=== PATIENT | female | born 1970 | race Caucasian/White ===

== ENCOUNTER 2018-07-28 12:21 | Emergency (ER) | payer OTHER ==
--- OUTSIDE RECORDS SUMMARY | 2018-07-28 12:23 | XMS REPORT ---
:1970 Author Organization [employer] Care Team Providers Name Role Phone Anthony Christina Provider Role Unavailable Allergies, Adverse Reactions, Alerts Substance Reaction Event Type N.K.D.A. Info Not Available Non Drug Allergy Problems Problem Type Condition Code Onset Dates Condition Status Assessment BMI 40.0-44.9, adult Z68.41 Active Problem Encounter for screening mammogram Z12.31 Active for breast cancer Problem Encounter for gynecological Z01.419 Active examination without abnormal finding Problem BMI 40.0-44.9, adult Z68.41 Active Assessment Encounter for gynecological Z01.419 Active examination without abnormal finding Assessment Encounter for screening mammogram Z12.31 Active for breast cancer Problem Gastroesophageal reflux disease, K21.9 Active esophagitis presence not specified Medications Medication Code Code Instructions Start End Status Dosage System Date Date Clonazepam [facility] 52931905585 1 MG Orally Once Active 1 tablet a day Seroquel [facility] 00026674293 200 MG Orally Active 1 tablet Once a day Lisinopril/HCTZ [facility] 25563730720 20/12.5 PO Q Active one daily tablet Atenolol [facility] 03272149115 50 MG Orally Active 1 tablet Once a day Pantoprazole [facility] 40103028472 40 MG Orally May 07, Active 1 tablet Sodium Once a day 2017 Results Name Result Date Reference Range Unit Abnormality Flag URINALYSIS AUTO W/O SCOPE (70435) ----NIT neg [id number] ----URO 1.0 [id number] ----PROTEIN neg [id number] ----pH 5.5 [id number] ----BLO TRACE [id number] ----GLUCOSE neg [id number] ----YVETTE neg [id number] ----BILIRUBIN 1+ [id number] ----KETONES 1+ [id number] ----SPECIFIC GRAVITY 1.025 [id number] Summary Purpose e[employer]Works Submission
--- OUTSIDE RECORDS SUMMARY | 2018-07-28 12:23 | XMS REPORT ---
:1970 Author Organization [employer] Care Team Providers Name Role Phone Anthony Christina Provider Role Unavailable Allergies No Known Allergies Problems Problem Type Condition Code Onset Dates Condition Status Problem Encounter for screening mammogram Z12.31 Active for breast cancer Problem Encounter for gynecological Z01.419 Active examination without abnormal finding Problem BMI 40.0-44.9, adult Z68.41 Active Problem Gastroesophageal reflux disease, K21.9 Active esophagitis presence not specified Medications Medication Code System Code Instructions Start Date End Date Status Dosage Diflucan [facility] 55901132025 150 MG Orally Jul 03, Jul 04, Active 1 tablet Once a day 2017 2017 Results No Known Results Summary Purpose [employer] Submission
--- NOTE | 2018-07-28 14:00 | RAD REPORT ---
EXAM DESCRIPTION: RAD -Hand Left 3 View - 07/28/2018 1:48 pm CLINICAL HISTORY: Left hand pain status post injury FINDINGS: No fracture or dislocation is seen.
--- NOTE | 2018-07-28 15:02 | ER ---
Nurse's Notes [facility] Name: Claire Saldaña Age: 48 yrs Sex: Female : 1970 Arrival Date: 07/28/2018 Time: 12:31 Bed 14 Private MD: Diagnosis: Unspecified sprain of left little finger Presentation: 07/28 12:38 Presenting complaint: Patient states: i fell working out yesterday and hurt L hand and hj L shoulder; denies hitting head and LOC;. Transition of care: patient was not received from another setting of care. Onset of symptoms was July 28, 2018. Risk Assessment: Do you want to hurt yourself or someone else? Patient reports no desire to harm self or others. Initial Sepsis Screen: Does the patient meet any 2 criteria? No. Patient's initial sepsis screen is negative. Does the patient have a suspected source of infection? No. Patient's initial sepsis screen is negative. Care prior to arrival: None. 12:38 Method Of Arrival: Ambulatory 12:38 Acuity: BOB 4 hj Triage Assessment: 12:40 General: Appears in no apparent distress. uncomfortable, Behavior is calm, cooperative, hj appropriate for age. Pain: Complains of pain in left hand. Musculoskeletal: Reports pain in left hand. 12:42 Injury Description: smashed. 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 - Social history:: Smoking status: Patient/guardian denies using tobacco, Patient/guardian denies using alcohol. - Ebola Screening: : Patient negative for fever greater than or equal to 101.5 degrees Fahrenheit, and additional compatible Ebola Virus Disease symptoms Patient denies exposure to infectious person Patient denies travel to an Ebola-affected area in the 21 days before illness onset. Screenin:40 Abuse screen: Denies threats or abuse. Denies injuries from another. Nutritional hj screening: No deficits noted. Tuberculosis screening: No symptoms or risk factors identified. Fall Risk None identified. Assessment: 13:00 General: Appears in no apparent distress. comfortable, well groomed, well developed, sg well nourished, Behavior is calm, cooperative, appropriate for age. Respiratory: Airway is patent Respiratory effort is even, unlabored, Respiratory pattern is regular, symmetrical. Derm: Bruising that is dark purple, green, on left little finger. Derm: Skin is pink, warm \T\ dry. Musculoskeletal: Circulation, motion, and sensation intact. Range of motion: intact in all extremities, Swelling present in left little finger. Vital Signs: 12:41 BP 112 / 75; Pulse 80; Resp 18; Temp 97.2(TE); Pulse Ox 98% on R/A; Weight 102.06 kg; hj Height 5 ft. 5 in. (165.10 cm); Pain 8/10; 15:00 BP 115 / 70; Pulse 72; Resp 17 S; Pulse Ox 98% on R/A; Pain 6/10; sg 12:41 Body Mass Index 37.44 (102.06 kg, 165.10 cm) ED Course: 12:31 Patient arrived in ED. sb2 12:39 Triage completed. hj 12:41 Arm band placed on right wrist. hj 12:42 Patient has correct armband on for positive identification. Bed in low position. Call light in reach. Side rails up X 1. 12:46 Luis Bateman NP is PHCP. pm1 12:47 Malik Trammell MD is Attending Physician. pm1 12:52 Jagdeep Whalen, JONE is Primary Nurse. sg 13:45 X-ray completed. Portable x-ray completed in exam room. Patient tolerated procedure ml well. 13:46 Hand Left 3 View XRAY In Process Unspecified. EDMS 15:00 Piter Snyder MD is Referral Physician. pm1 15:30 No provider procedures requiring assistance completed. IV discontinued, intact, sg bleeding controlled, No redness/swelling at site. Pressure dressing applied. 15:32 Aluminum finger splint applied to left little finger. sg Administered Medications: No medications were administered Outcome: 15:02 Discharge ordered by . pm1 15:30 Discharged to home ambulatory, with family. sg 15:30 Condition: stable 15:30 Discharge instructions given to patient, Instructed on discharge instructions, follow up and referral plans. medication usage, safety practices, Demonstrated understanding of instructions, follow-up care, medications, Prescriptions given X 1. 15:33 Patient left the ED. sg Signatures: Dispatcher [employer] EDMS Jagdeep Whalen, RN RN Claire Johnston Henry, RN RN Luis Duarte, COMMISSIONER [employer]SERV[employer]OURCES COMMISSIONER CONSERVATION OF [employer]OURCES pm1 Sarah Harrison sb2 Corrections: (The following items were deleted from the chart) 12:42 12:41 Pulse 80bpm; Resp 18bpm; Pulse Ox 98% RA; Temp 97.2F Temporal; 102.06 kg; Height hj 5 ft. 5 in.; BMI: 37.4; Pain 8/10; hj
--- NOTE | 2018-07-28 15:03 | EDPHYS ---
Physician Documentation [facility] Name: Claire Saldaña Age: 48 yrs Sex: Female : 1970 Arrival Date: 07/28/2018 Time: 12:31 Bed 14 Private MD: ED Physician Malik Trammell HPI: 07/28 15:00 This 48 yrs old Female presents to ER via Ambulatory with complaints of pm1 Finger Injury. 18:36 The patient or guardian reports decreased range of motion, pain, swelling. The pm1 complaints affect the left little finger. Context: The problem was sustained at a Gym, resulted from a fall. Onset: The symptoms/episode began/occurred yesterday. Modifying factors: The symptoms are alleviated by nothing, the symptoms are aggravated by movement. Associated signs and symptoms: Pertinent negatives: cyanosis distally, decreased sensation distally, numbness distally, tingling distally. Severity of symptoms: in the emergency department the symptoms are actually worse. Patient was able to bend her 5 th left finger FROM after injury yesterday but with the swelling today she is has some limits on the range of motion of her 5 th little finger. Patient fell of the tread mill and injured her finger. Patient without headache, head injury or neck pain. 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 - Social history:: Smoking status: Patient/guardian denies using tobacco, Patient/guardian denies using alcohol. - Ebola Screening: : Patient negative for fever greater than or equal to 101.5 degrees Fahrenheit, and additional compatible Ebola Virus Disease symptoms Patient denies exposure to infectious person Patient denies travel to an Ebola-affected area in the 21 days before illness onset. ROS: 18:36 Constitutional: Negative for fever, chills, and weight loss, Eyes: Negative for injury, pm1 pain, redness, and discharge, ENT: Negative for injury, pain, and discharge, Neck: Negative for injury, pain, and swelling, Cardiovascular: Negative for chest pain, palpitations, and edema, Respiratory: Negative for shortness of breath, cough, wheezing, and pleuritic chest pain, Abdomen/GI: Negative for abdominal pain, nausea, vomiting, diarrhea, and constipation, Back: Negative for injury and pain. 18:36 Skin: Negative for injury, rash, and discoloration, Neuro: Negative for headache, weakness, numbness, tingling, and seizure. 18:36 MS/extremity: Positive for pain, of the left little finger. Exam: 18:36 Constitutional: This is a well developed, well nourished patient who is awake, alert, pm1 and in no acute distress. Head/Face: Normocephalic, atraumatic. Eyes: Pupils equal round and reactive to light, extra-ocular motions intact. Lids and lashes normal. Conjunctiva and sclera are non-icteric and not injected. Cornea within normal limits. Periorbital areas with no swelling, redness, or edema. ENT: Nares patent. No nasal discharge, no septal abnormalities noted. Tympanic membranes are normal and external auditory canals are clear. Oropharynx with no redness, swelling, or masses, exudates, or evidence of obstruction, uvula midline. Mucous membranes moist. Neck: Trachea midline, no thyromegaly or masses palpated, and no cervical lymphadenopathy. Supple, full range of motion without nuchal rigidity, or vertebral point tenderness. No Meningismus. Chest/axilla: Normal chest wall appearance and motion. Nontender with no deformity. No lesions are appreciated. Cardiovascular: Regular rate and rhythm with a normal S1 and S2. No gallops, murmurs, or rubs. Normal PMI, no JVD. No pulse deficits. Respiratory: Lungs have equal breath sounds bilaterally, clear to auscultation and percussion. No rales, rhonchi or wheezes noted. No increased work of breathing, no retractions or nasal flaring. Abdomen/GI: Soft, non-tender, with normal bowel sounds. No distension or tympany. No guarding or rebound. No evidence of tenderness throughout. Back: No spinal tenderness. No costovertebral tenderness. Full range of motion. Skin: Warm, dry with normal turgor. Normal color with no rashes, no lesions, and no evidence of cellulitis. 18:36 Musculoskeletal/extremity: Extremities: grossly normal except: noted in the left little finger: tenderness, ROM: limited active range of motion due to pain, in the left little finger, Circulation is intact in all extremities. Pulses: noted to be 2+ in the left radial artery. Vital Signs: 12:41 BP 112 / 75; Pulse 80; Resp 18; Temp 97.2(TE); Pulse Ox 98% on R/A; Weight 102.06 kg; hj Height 5 ft. 5 in. (165.10 cm); Pain 8/10; 15:00 BP 115 / 70; Pulse 72; Resp 17 S; Pulse Ox 98% on R/A; Pain 6/10; sg 12:41 Body Mass Index 37.44 (102.06 kg, 165.10 cm) hj MDM: 12:50 Patient medically screened. pm1 14:59 Data reviewed: vital signs. Data interpreted: Pulse oximetry: on room air is 98 %. pm1 Interpretation: normal. Counseling: I had a detailed discussion with the patient and/or guardian regarding: the historical points, exam findings, and any diagnostic results supporting the discharge/admit diagnosis, radiology results, the need for outpatient follow up, to return to the emergency department if symptoms worsen or persist or if there are any questions or concerns that arise at home. 07/28 13:41 Order name: Hand Left 3 View XRAY; Complete Time: 14:47 pm1 07/28 14:59 Order name: Splint - Finger; Complete Time: 15:32 pm1 Administered Medications: No medications were administered Disposition: 07/29 10:12 Co-signature as Attending Physician, Malik Trammell MD. Disposition: 07/28/18 15:02 Discharged to Home. Impression: Unspecified sprain of left little finger. - Condition is Stable. - Discharge Instructions: Cast or Splint Care, Adult, Finger Sprain, Adult. - Prescriptions for Tramadol 50 mg Oral Tablet - take 1 tablet by ORAL route every 8 hours as needed; 12 tablet. - Work release form, Medication Reconciliation Form, Thank You Letter, Antibiotic Education, Prescription Opioid Use form. - Follow up: Emergency Department; When: As needed; Reason: Worsening of condition. Follow up: Piter Snyder MD; When: 2 - 3 days; Reason: Recheck today's complaints, Continuance of care, Re-evaluation by your physician. - Problem is new. - Symptoms have improved. Signatures: Dispatcher [employer] EDMS Jagdeep Whalen RN RN Gian Ni RN RN hj Luis Bateman, COUNTY HOME DEMONSTRATOR COUNTY HOME DEMONSTRATOR pm1 Malik Trammell MD MD gs Corrections: (The following items were deleted from the chart) 07/28 15:33 15:02 07/28/2018 15:02 Discharged to Home. Impression: Unspecified sprain of left sg little finger. Condition is Stable. Forms are Medication Reconciliation Form, Thank You Letter, Antibiotic Education, Prescription Opioid Use. Follow up: Emergency Department; When: As needed; Reason: Worsening of condition. Follow up: Piter Snyder; When: 2 - 3 days; Reason: Recheck today's complaints, Continuance of care, Re-evaluation by your physician. Problem is new. Symptoms have improved. pm1
== END 2018-07-28 15:33 | disposition home or self-care (01) ==
LOC: ER 12:21
PROC: 2W3KX1Z Immobilization of Left Finger using Splint (ICD-10-PCS; principal; 2018-07-28)
DX: S63.617A Unspecified sprain of left little finger, initial encounter (principal); W01.0XXA Fall on same level from slipping, tripping and stumbling without subsequent striking against object, initial encounter; Y93.A1 Activity, exercise machines primarily for cardiorespiratory conditioning; Y92.39 Other specified sports and athletic area as the place of occurrence of the external cause; I10 Essential (primary) hypertension
CPT/HCPCS: 99283

== ENCOUNTER 2023-07-06 21:57 | Emergency (ER) | payer BC, OTHER ==
--- OUTSIDE RECORDS SUMMARY | 2023-07-06 22:00 | XMS REPORT | Continuity of Care Document ---
:1970 Author Organization [facility] t Address [address] [place] [address] Care Team Providers Name Role Phone Unavailable Unavailable Unavailable Problems Condition Condition Condition Status Onset Resolution Last Treating Co mments Source Name Details Category Date Date Treatment Clinician Date BMI BMI Problem Active Common 40.0-44.9, 40.0-44.9, Sp radha adult adult [facility] Encounter Encounter Problem Active Com mon for for Spirit screening screening - [facility] I mammogram mammogram St for breast for breast [facility] Encounter Encounter Problem Active Com mon [facility] gynecologi gynecologi - [facility] marsha marsha St examinatio examinatio Na kes n without n without Medi marsha abnormal abnormal Center finding finding Gastroesop Gastroesop Problem Active C ommon hageal hageal Spirit reflux reflux - [facility] disease, disease, St esophagiti esophagiti Na kes s presence s presence Me dical not not Center specified specified Abnormal Abnormal Diagnosis Active Com mon mammogram mammogram Spir it - [facility] Allergies, Adverse Reactions, Alerts This patient has no known allergies or adverse reactions. Medications Ordered Filled Start Stop Current Ordering Indication Dosage Frequency Signature Comments Components Source Medication Medication Date Date Medication? Clinician (SIG) Name Name Pantoprazol Pantoprazol 2018- Yes Anthony 1 tablet Common e Sodium e Sodium 6-13 [facility] 00:00: - [facility] 00 [facility] Atenolol Atenolol Yes Anthony 1 tablet Common [facility] Clonazepam Clonazepam Yes Anthony 1 tablet Common [facility] Lisinopril/ Lisinopril/ Yes Anthony one tablet Common HCTZ HCTZ [facility] Seroquel Seroquel Yes Anthony 1 tablet [facility] Procedures This patient has no known procedures. Encounters Start End Encounter Admission Attending Care Care Encounter Source Date/Time Date/Time Type Type Clinicians Facility Department ID 2019-08-11 2019-08-11 [id number] Common 09:38[facility] 2019-03-03 2019-03-03 [facility] [id number] Common 09:59:00 09:59:00 t [facility] 2019-02-26 2019-02-26 [facility] [id number] Common 11:21:[facility] 2019-02-26 2019-02-26 [facility] [id number] Common 10:15:00 10:15:00 t [facility] 2018-07-03 2018-07-03 [facility] [id number] Common 10:09:00 10:09:00 t [facility] 2018-06-02 2018-06-02 [facility] [id number] Common 13:30:00 13:30:00 t [facility] Results This patient has no known results.
[2023-07-06] MEDS ORDERED: NA CHLORIDE 0.9% 1,000 ML ONE (22:30)
[2023-07-06 22:44] LABS: Absolute Lymphocytes (CBC) 1.5 K/uL (0.7-4.9); Hematocrit 37.8 % (36.0-45.0); Lymphocytes % 24.1 % (15.3-44.8); MCV 84.5 fL (80-100); Platelets 196 thou/uL (152-406); RBC Red Blood Cell Count 4.48 M/uL (3.86-4.86)
[2023-07-06 22:57] LABS: Bilirubin Total 0.7 mg/dL (0.2-1.0); Magnesium 1.9 mg/dL (1.6-2.4); Potassium 3.7 mEq/L (3.5-5.1); Troponin High Sensitivity 4.9 pg/mL (<58.9)
[2023-07-06 23:56] LABS: Barbiturates NEGATIVE (NEGATIVE); Benzodiazepines NEGATIVE (NEGATIVE); Cocaine NEGATIVE (NEGATIVE); METHAMPHETAM NEGATIVE (NEGATIVE); Methadone NEGATIVE (NEGATIVE); Opiates NEGATIVE (NEGATIVE); Phencyclidine NEGATIVE (NEGATIVE); THC Cannibis NEGATIVE (NEGATIVE)
[2023-07-06 23:57] LABS: Specific Gravity 1.015 (1.005-1.030); Urine Bacteria <20 /HPF (<20); Urine Bilirubin NEGATIVE (Negative); Urine Blood 3+ (Negative); Urine Clarity Turbid (Clear); Urine Color Light-Yellow (Yellow); Urine Crystals Unidentified Few /HPF (None Seen); Urine Glucose NEGATIVE (Negative); Urine Mucus Slight /HPF (None Seen); Urine Protein TRACE (Negative); Urine RBC <5 /HPF (None Seen); Urine Urobilinogen Normal (Normal); Urine pH 5.5 (5.0-7.0)
[2023-07-07 00:02] LABS: Specific Gravity 1.015 (1.005-1.030)
--- NOTE | 2023-07-07 00:11 | ER ---
Nurse's Notes [facility] Name: Claire Saldaña Age: 53 yrs Sex: Female : 1970 Arrival Date: 07/06/2023 Time: 21:57 Bed 12 Private MD: Diagnosis: Seizure-like activity Presentation: 07/06 22:09 Chief complaint: EMS states: witnessed seizure lasted approx 30 seconds no previous kl history post tictal state per EMS pt initially confused currently AAOx 4. Coronavirus screen: Vaccine status: Patient reports receiving the 2nd dose of the covid vaccine. Ebola Screen: Patient negative for fever greater than or equal to 101.5 degrees Fahrenheit, and additional compatible Ebola Virus Disease symptoms. Initial Sepsis Screen: Does the patient meet any 2 criteria? No. Patient's initial sepsis screen is negative. Does the patient have a suspected source of infection? No. Patient's initial sepsis screen is negative. Risk Assessment: Do you want to hurt yourself or someone else? Patient reports no desire to harm self or others. 22:09 Method Of Arrival: EMS: [facility] 22:09 Acuity: BOB 3 kl Triage Assessment: 22:16 General: Appears in no apparent distress. comfortable, Behavior is calm, cooperative. kl Pain: Denies pain. Neuro: Level of Consciousness is awake, alert, obeys commands, Oriented to person, place, time, situation, Speech is normal, Facial symmetry appears normal, Pupils are PERRLA, Pupil Size: 4. Cardiovascular: No deficits noted. Respiratory: No deficits noted. GI: No deficits noted. No signs and/or symptoms were reported involving the gastrointestinal system. : No deficits noted. No signs and/or symptoms were reported regarding the genitourinary system. Derm: No deficits noted. No signs and/or symptoms reported regarding the dermatologic system. Musculoskeletal: No deficits noted. No signs and/or symptoms reported regarding the musculoskeletal system. Historical: - Allergies: 22:12 Tetanus Immune Globulin; kl - Home Meds: 22:12 lisinopril 20 mg Oral tablet daily [Active]; atenolol 50 mg Oral tablet daily [Active]; kl Seroquel 600mg Oral tablet 1 tab once at bedtime [Active]; clonazepam 1 mg Oral Tablet,disintegrating every day at bedtime [Active]; diazepam 10 mg Oral tablet daily for anxiety [Active]; omeprazole 20 mg Oral tablet, delayed release (enteric coated) daily [Active]; - PMHx: 22:12 Hypertension; anxiery; kl - Immunization history:: Adult Immunizations unknown. - Social history:: Smoking status: Patient denies any tobacco usage or history of. Screenin:13 [facility] ED Fall Risk Assessment (Adult) History of falling in the last 3 months, kl including since admission No falls in past 3 months (0 pts) Confusion or Disorientation No (0 pts) Intoxicated or Sedated No (0 pts) Impaired Gait No (0 pts) Mobility Assist Device Used No (0 pt) Altered Elimination No (0 pt) Score/Fall Risk Level 0 - 2 = Low Risk Oriented to surroundings, Maintained a safe environment. Abuse screen: Denies threats or abuse. Nutritional screening: No deficits noted. Tuberculosis screening: No symptoms or risk factors identified. Assessment: 23:12 Reassessment: Patient appears in no apparent distress at this time. Patient states kl feeling better. Patient states symptoms have improved. 07/07 00:51 Neuro: No deficits noted. Level of Consciousness is awake, alert, obeys commands, kl Oriented to person, place, time, situation, Speech is normal, Facial symmetry appears normal, Pupils are PERRLA. Vital Signs: 07/06 22:09 BP 124 / 73; Pulse 92; Resp 20; Pulse Ox 94% on R/A; Weight 141.97 kg (M); Height 5 ft. kl 5 in. ; Pain 0/10; 23:13 BP 124 / 77; Pulse 82; Resp 18; Pulse Ox 97% on R/A; kl 07/07 00:52 BP 114 / 77; Pulse 82; Resp 16; Pulse Ox 98% on R/A; kl 07/06 22:09 Body Mass Index 52.09 (141.97 kg, 165.1 cm) 07/06 22:09 Pain Scale: Adult ED Course: 07/06 21:59 Patient arrived in ED. 21:59 Myra Lynne MD is Attending Physician. sd2 22:12 Triage completed. kl 22:28 Minh Hdz, RN is Primary Nurse. jb4 22:28 CMP Sent. jb4 22:28 Magnesium Sent. jb4 22:28 CBC with Diff Sent. jb4 22:28 CK Sent. jb4 22:54 CT Head Brain wo Cont In Process Unspecified. EDMS 23:14 Patient has correct armband on for positive identification. Bed in low position. Call kl light in reach. Side rails up X2. Adult w/ patient. 23:14 Provided Education on: seizure precautions. kl 23:37 Urinalysis w/ reflexes Sent. eb1 23:37 UDS Sent. eb1 23:37 Test, Urine Sent. eb1 07/07 00:13 Waylon Sy MD is Referral Physician. sd2 00:52 No provider procedures requiring assistance completed. IV discontinued, intact, kl bleeding controlled, No redness/swelling at site. Pressure dressing applied. Administered Medications: 07/06 22:28 Drug: NS 0.9% IV 1000 ml Route: IV; Rate: 1 bolus; Site: right hand; jb4 07/07 00:51 Follow up: IV Status: Order to discontinue infusion kl Outcome: 00:11 Discharge ordered by . sd2 00:52 Discharged to home ambulatory, with friend. 00:52 Condition: improved 00:52 Discharge instructions given to patient, friend, Instructed on discharge instructions, follow up and referral plans. Demonstrated understanding of instructions, follow-up care. 00:53 Patient left the ED. kl Signatures: Dispatcher [employer] Melani Marshall RN RN kl Bryson, James RN Gianna Davis RN RN eb1 Myra Lynne MD MD sd2
--- NOTE | 2023-07-07 00:11 | EDPHYS ---
Physician Documentation [facility] Name: Claire Saldaña Age: 53 yrs Sex: Female : 1970 Arrival Date: 07/06/2023 Time: 21:57 Bed 12 Private MD: ED Physician Myra Lynne HPI: 07/06 22:14 This 53 yrs old Female presents to ER via EMS with complaints of seizure. sd2 22:14 53 yo F presents via EMS with CC of seizure-like activity. 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 They lowered her onto the ground and onto her side and it lasted approximately 30 seconds. No incontinence or tongue biting noted. No prior hx of seizures. Pt initially post-ictal with EMS and then started to have a panic attack and was given 2 mg of Ativan prior to arrival. Pt reports no pain or issues now. She does not recall the event or any events today prior to the event. Denies any new medications, supplements, exposures or family history of seizures. . Historical: - Allergies: 22:12 Tetanus Immune Globulin; kl - Home Meds: 22:12 lisinopril 20 mg Oral tablet daily [Active]; atenolol 50 mg Oral tablet daily [Active]; kl Seroquel 600mg Oral tablet 1 tab once at bedtime [Active]; clonazepam 1 mg Oral Tablet,disintegrating every day at bedtime [Active]; diazepam 10 mg Oral tablet daily for anxiety [Active]; omeprazole 20 mg Oral tablet, delayed release (enteric coated) daily [Active]; - PMHx: 22:12 Hypertension; anxiery; kl - Immunization history:: Adult Immunizations unknown. - Social history:: Smoking status: Patient denies any tobacco usage or history of. ROS: 22:14 Constitutional: Negative for fever, chills, and weight loss, Eyes: Negative for injury, sd2 pain, redness, and discharge, Cardiovascular: Negative for chest pain, palpitations, and edema, Respiratory: Negative for shortness of breath, cough, wheezing. Abdomen/GI: Negative for abdominal pain, nausea, vomiting, diarrhea. MS/Extremity: Negative for injury and deformity, Skin: Negative for injury, rash, and discoloration, Neuro: Negative for headache, numbness and tingling. Positive for seizure. Psych: Positive for anxiety. Negative for depression and suicidal ideation. Exam: 22:14 Constitutional: This is a well developed, well nourished patient who is awake, alert, sd2 and in no acute distress. Head/Face: Normocephalic, atraumatic. Eyes: EOMI, normal conjunctiva bilaterally Chest/axilla: Normal chest wall appearance and motion. Nontender with no deformity. Cardiovascular: Regular rate and rhythm with a normal S1 and S2. No gallops, murmurs, or rubs. 2+ distal pulses. Respiratory: Lungs have equal breath sounds bilaterally, clear to auscultation and percussion. No rales, rhonchi or wheezes noted. No increased work of breathing, no retractions or nasal flaring. Abdomen/GI: Soft, non-tender, with normal bowel sounds. No guarding or rebound. No evidence of tenderness throughout. Skin: Warm, dry with normal turgor. Normal color with no rashes, no lesions, and no evidence of cellulitis. MS/ Extremity: Pulses equal, no cyanosis. Neurovascular intact. Full, normal range of motion. Ambulatory without difficulty. Neuro: Awake and alert, GCS 15, oriented to person, place, time, and situation. Cranial nerves II-XII grossly intact. Motor strength 4/5 in all extremities. Sensory grossly intact. Psych: Awake, alert, with orientation to person, place and time. Behavior, mood, and affect are within normal limits. 23:16 ECG was reviewed by the Attending Physician. NSR, rate 83, no STEMI criteria sd2 Vital Signs: 22:09 BP 124 / 73; Pulse 92; Resp 20; Pulse Ox 94% on R/A; Weight 141.97 kg (M); Height 5 ft. kl 5 in. ; Pain 0/10; 23:13 BP 124 / 77; Pulse 82; Resp 18; Pulse Ox 97% on R/A; kl 07/07 00:52 BP 114 / 77; Pulse 82; Resp 16; Pulse Ox 98% on R/A; kl 07/06 22:09 Body Mass Index 52.09 (141.97 kg, 165.1 cm) 08/12 22:09 Pain Scale: Adult kl MDM: 07/06 21:59 Patient medically screened. sd2 22:14 Differential Diagnosis seizure, electrolyte abnormality, mass, ICH, substance abuse sd2 among others. Data reviewed: vital signs, nurses notes, EMS record, lab test result(s), EKG, radiologic studies. I considered the following discharge prescriptions or medication management in the emergency department Medications were administered in the Emergency Department. See MAR. Historians other than the Patient: EMS: provides initial report. 07/07 00:09 Consideration of Admission/Observation Escalation of care including sd2 admission/observation considered. Care significantly affected by the following chronic conditions: Hypertension. Counseling: I had a detailed discussion with the patient and/or guardian regarding: the historical points, exam findings, and any diagnostic results supporting the discharge/admit diagnosis, lab results, radiology results, the need for outpatient follow up, to return to the emergency department if symptoms worsen or persist or if there are any questions or concerns that arise at home. ED course: Labs and imaging reviewed with no acute abnormalities. Pt returned to baseline. No further seizure activity. Advised to follow up outpatient with PCP and Neurology and to receive clearance prior to driving. Pt verbalizes understanding of discharge plan and strict return precautions and is comfortable with the plan.. 07/06 22:14 Order name: CBC with Diff; Complete Time: 23:15 sd2 07/06 22:14 Order name: CMP; Complete Time: 23:15 sd2 07/06 22:14 Order name: Magnesium; Complete Time: 23:15 2 07/06 22:14 Order name: Troponin High Sensitivity; Complete Time: 23:15 sd2 07/06 22:14 Order name: UDS; Complete Time: 00:04 2 07/06 22:14 Order name: Urinalysis w/ reflexes; Complete Time: 00:04 sd2 07/06 22:14 Order name: Test, Urine; Complete Time: 00:04 2 07/06 22:14 Order name: CK; Complete Time: 23:15 sd2 07/06 22:14 Order name: CT Head Brain wo Cont sd2 07/06 22:14 Order name: EKG - Nurse/Tech; Complete Time: 22:46 sd2 Administered Medications: 07/06 22:28 Drug: NS 0.9% IV 1000 ml Route: IV; Rate: 1 bolus; Site: right hand; jb4 07/07 00:51 Follow up: IV Status: Order to discontinue infusion kl Disposition Summary: 07/07/23 00:11 Discharge Ordered Location: Home sd2 Problem: new sd2 Symptoms: have improved sd2 Condition: Stable sd2 Diagnosis - Seizure-like activity sd2 Followup: sd2 - With: Private Physician - When: 2 - 3 days - Reason: Recheck today's complaints, Continuance of care, Re-evaluation by your physician Followup: sd2 - With: Waylon Sy MD - When: 2 - 3 days - Reason: Recheck today's complaints, Continuance of care Discharge Instructions: - Discharge Summary Sheet sd2 - Seizure, Adult sd2 Forms: - Work release form kl - Medication Reconciliation Form sd2 - Thank You Letter sd2 - Antibiotic Education sd2 - Prescription Opioid Use sd2 - Patient Portal Instructions sd2 - Leadership Thank You Letter sd2 Signatures: Dispatcher [employer] Melani Marshall RN RN kl Bryson, James, RN RN jb Myra Lynne MD MD sd2
[2023-07-07 01:14] VITALS: BP 114/77; O2SAT 98
--- NOTE | 2023-07-08 10:03 | RAD REPORT ---
EXAM DESCRIPTION: CT - Head Brain Wo Cont - 07/07/2023 7:06 am CLINICAL HISTORY: 53 years Female SEIZURE COMPARISON: None TECHNIQUE: Contiguous axial images of the brain were obtained without the administration of intraven ous contrast.This exam was performed according to our departmental dose-optimization program which in cludes use of Automated Exposure Control, adjustment of the mA and/or kV according to patient size an d/or use of iterative reconstruction technique. DLP: 846 mGy*cm FINDINGS: Brain: No acute intracranial hemorrhage. No extra-axial collection. No mass effect or lito iation. Ventricles: Within normal limits in size. Globes and orbits: No acute abnormality. Bones: No acute osseous finding Paranasal sinuses: Paranasal sinuses are clear. Mastoid air cells: Well pneumatized. Soft tissues: Within normal limits IMPRESSION: No acute intracranial abnormality. Electronically signed by: Malik Boston DO 07/06/2023 11:20 PM CDT Due to temporary technical issues with the PACS/Fluency reporting system, reports are being signed by the in house radiologist without review as a courtesy to ensure prompt reporting. The interpreting r adiologist is fully responsible for the content of the report.
--- NOTE | 2023-07-08 13:12 | EKG ---
Test Date: 2023-07-06 Test Time: 22:35:09 Wool Tamper: MEASUREMENT RESULTS: Intervals: Rate: 83 SC: 168 QRSD: 88 QT: 384 QTc: 451 [place]: P: 58 SC: 168 QRS: 4 T: 53 INTERPRETIVE STATEMENTS: Normal sinus rhythm Nonspecific ST and T wave abnormality Abnormal ECG No previous ECG available for comparison Electronically Signed On 07-08-23 13:10:12 CDT by Eulogio De La Torre
== END 2023-07-07 00:53 | disposition home or self-care (01) ==
LOC: ER 21:57
DX: R56.9 Unspecified convulsions (principal); I10 Essential (primary) hypertension; F41.9 Anxiety disorder, unspecified; Z88.8 Allergy status to other drugs, medicaments and biological substances
CPT/HCPCS: 96361; 93005; 85025; 81001; 36415; 83735; 82550; 81025; 84484; 80053; 80307; 70450; 96360; 99284; J7030